=== PATIENT | female | born 1990 | race Two or more races ===

== ENCOUNTER 2023-12-04 12:48 | Emergency (ER) | payer SELFPAY ==
[2023-12-04 13:20] VITALS: BP 110/70; PULSE 76; RESP 17; TEMP 98.2; BMI 28.3
== END 2023-12-04 15:00 | disposition home or self-care (01) ==
LOC: JERFT 12:48
DX: Z32.02 Encounter for pregnancy test, result negative (principal)
CPT/HCPCS: 36415; 84703; 99283-25